=== PATIENT | female | born 1970 | race Two or more races ===

== ENCOUNTER 2018-03-09 00:55 | Emergency (ER) | payer BC ==
[~2018-03-09] VITALS: Ht 172.7 cm; Wt 89.8 kg
[2018-03-09] MEDS ORDERED: BENADRYL25 MG PO (03:27)
[2018-03-09] MEDS ORDERED: MEDROL8 MG PO (03:27)
[2018-03-09] MEDS ORDERED: PEPCID40 MG PO ×2 (03:27)
== END 2018-03-09 03:34 ==
LOC: ER 00:55
DX: T78.3XXA Angioneurotic edema, initial encounter (principal)